=== PATIENT | female | born 1960 | race Caucasian/White ===

== ENCOUNTER 2020-01-25 18:40 | Emergency (ER) | payer BC, OTHER ==
[~2020-01-25] VITALS: Ht 157.5 cm; Wt 47.6 kg
[2020-01-25 18:50] VITALS: BP 165/99
[2020-01-25] MEDS ORDERED: DiphenhydrAMINE 50mg/ml Inj IVP ONE (19:00)
[2020-01-25 19:30] LABS: APPEARANCE,URINE CLEAR; BASOPHILS % (AUTO) 1.5 % (0.0-2.0); BILIRUBIN, URINE NEGATIVE (NEGATIVE); COLOR,URINE PALE YELLOW; EOSINOPHILS % (AUTO) 1.1 % (0.0-3.0); GLUCOSE, URINE (UA) NEGATIVE (NEGATIVE); HEMATOCRIT 40.4 % (37.0-47.0); HEMOGLOBIN 13.9 G/DL (12.0-16.0); KETONES,URINE NEGATIVE (NEGATIVE); LEUKOCYTE ESTERASE ,URINE 1+ (NEGATIVE); LYMPHOCYTES % (AUTO) 42.2 % (20.0-45.0); MEAN CORPUSCULAR VOLUME 93 FL (80-99); MONOCYTES % (AUTO) 8.9 % (1.0-10.0); NEUTROPHILS % (AUTO) 46.2 % (45.0-75.0); NITRITE,URINE NEGATIVE (NEGATIVE); PH,URINE 5 (4.5-8.0); PLATELET COUNT 286 K/UL (150-450); PROTEIN,URINE NEGATIVE (NEGATIVE); RED BLOOD COUNT 4.33 M/UL (4.20-5.40); RED CELL DISTRIBUTION WIDTH 12.6 % (11.6-14.8); UROBILINOGEN,URINE NORMAL MG/DL (0.0-1.0); WHITE BLOOD COUNT 5.9 K/UL (4.8-10.8)
[2020-01-25 19:37] LABS: ANION GAP 13 mmol/L (5-15); BLOOD UREA NITROGEN 19 mg/dL (7-18); CARBON DIOXIDE 24 MMOL/L (21-32); CHLORIDE 103 MMOL/L (98-107); CREATININE 0.9 MG/DL (0.55-1.30); POTASSIUM 3.8 MMOL/L (3.5-5.1); SODIUM 140 MMOL/L (136-145)
[2020-01-25 19:41] LABS: ALANINE AMINOTRANSFERASE 20 U/L (12-78); ALBUMIN 4.1 G/DL (3.4-5.0); ALBUMIN/GLOBULIN RATIO 1.1 (1.0-2.7); ALKALINE PHOSPHATASE 50 U/L (46-116); ASPARTATE AMINO TRANSFERASE 19 U/L (15-37); BILIRUBIN,TOTAL 0.7 MG/DL (0.2-1.0)
--- NOTE | 2020-01-25 19:57 | Emergency Room Report ---
History of Present Illness General Chief Complaint: Allergic Reaction Source: Patient Present Illness HPI 59-year-old female with history of severe food allergies here complaining of swelling in lips and tongue and tingling sensation inside her mouth after she had dinner about 30 minutes prior to arrival. Patient reports that she was eating the same meal that she usually cooks for herself as she has history of severe allergies. Patient reports that she used to carry an EpiPen with her in the past. Has not been seen by an mica parts sprayer in a few years. Patient appears to be very anxious. Reports that she also has a history of asthma and is well controlled. Patient does not want to have a chest x-ray at this time. Patient is able to speak in full sentences, swallows without any difficulty. No anaphylaxis noted. No obvious angioedema noted at this time however patient reports that right after eating food it was more swollen. Patient did take Claritin at home and reports that it helped with the swelling. Denies any headache, dizziness, chest pain, abdominal pain, nausea or vomiting. Reports that she has an appointment with her load manager tomorrow and will follow-up with an mica parts sprayer. Allergies: Coded Allergies: AZITHROMYCIN (Verified Allergy, Unknown, 01/25/20) COVID-19 Screening Contact w/high risk pt: No Recent Travel to affected area: No Experienced COVID-19 symptoms?: No COVID-19 Testing performed NURSE RESEARCH: No Patient History Past Medical History: see triage record Past Surgical History: none Pertinent Family History: none Now: No Immunizations: UTD Reviewed Nursing Documentation: PMH: Agreed; PSxH: Agreed Nursing Documentation-PMH Past Medical History: No Stated History Review of Systems All Other Systems: negative except mentioned in HPI Physical Exam Vital Signs Date Time Temp Pulse Resp B/P (MAP) Pulse Ox O2 Delivery O2 Flow Rate FiO2 01/25/20 18:44 98.1 71 18 165/99 (121) 95 Room Air Sp02 EP Interpretation: reviewed, normal General Appearance: no apparent distress, alert, GCS 15, non-toxic Head: normocephalic, atraumatic Eyes: bilateral eye normal inspection, bilateral eye PERRL ENT: hearing grossly normal, normal pharynx, no angioedema, normal voice, uvula midline Neck: full range of motion, supple/symm/no masses Respiratory: chest non-tender, lungs clear, normal breath sounds, speaking full sentences Cardiovascular #1: regular rate, rhythm, no edema, no JVD, no murmur Gastrointestinal: normal bowel sounds, non tender, soft, non-distended, no guarding, no rebound Rectal: deferred Genitourinary: no CVA tenderness Musculoskeletal: back normal Neurologic: alert, oriented Psychiatric: judgement/insight normal, memory normal, mood/affect normal, no suicidal/homicidal ideation, anxious Skin: other - Minimal swelling and redness noted perioral Lymphatic: no adenopathy Medical Decision Making PA Attestation All diagnoses and treatment plans were reviewed and discussed with my supervising physician Dr. Mckenzie Diagnostic Impression: Primary Impression: Angioedema Additional Impression: Allergic reaction ER Course 59-year-old female with history of severe food allergies here complaining of swelling in lips and tongue and tingling sensation inside her mouth after she had dinner about 30 minutes prior to arrival. Patient reports that she was eating the same meal that she usually cooks for herself as she has history of severe allergies. Patient reports that she used to carry an EpiPen with her in the past. Has not been seen by an mica parts sprayer in a few years. Patient appears to be very anxious. Reports that she also has a history of asthma and is well controlled. Patient does not want to have a chest x-ray at this time. Patient is able to speak in full sentences, swallows without any difficulty. No anaphylaxis noted. No obvious angioedema noted at this time however patient reports that right after eating food it was more swollen. Patient did take Claritin at home and reports that it helped with the swelling. Denies any headache, dizziness, chest pain, abdominal pain, nausea or vomiting. Reports that she has an appointment with her load manager tomorrow and will follow-up with an mica parts sprayer. Ddx considered but are not limited to : Anaphylaxis, angioedema, allergic reaction, Vital signs: are WNL, pt. is afebrile H&PE are most consistent with: Allergic reaction with minimal angioedema ORDERS: Benadryl, prednisone, EpiPen, CBC, CMP, UA ED INTERVENTIONS: Dexamethasone IV, Benadryl DISCHARGE: At this time pt. is stable for d/c to home. Will provide printed patient care instructions, and any necessary prescriptions. Care plan and follow up instructions have been discussed with the patient prior to discharge. Patient to follow primary doctor as well as an mica parts sprayer, take medication as directed, only use the EpiPen if anaphylaxis. If worsening symptoms return to the emergency room. Last Vital Signs Date Time Temp Pulse Resp B/P (MAP) Pulse Ox O2 Delivery O2 Flow Rate FiO2 01/25/20 18:50 98.1 71 18 165/99 95 Room Air Disposition: HOME, SELF-CARE Condition: Stable Scripts Epinephrine (Epipen 2-Dennis) 0.3 Mg/0.3 Ml Auto.injct 0.3 MG IM PRN, #2 EA Prov: Cathy Sarah 01/25/20 Diphenhydramine HCl (Benadryl) 25 Mg Capsule 25 MG PO BID, #20 CAP Prov: Cathy Sarah 01/25/20 Prednisone* (PREDNISONE*) 20 Mg Tablet 40 MG ORAL DAILY for 5 Days, #10 TAB Prov: Cathy Sarah 01/25/20 Patient Instructions: Allergies, Angioedema, [id number] Additional Instructions: Follow-up with primary doctor for allergy testing, take medication as directed, if anaphylaxis and difficulty breathing return to the emergency room. Increase oral hydration. Cathy Sarah Jan 25, 2020 19:57
[2020-01-25] MEDS ORDERED: PREDNISONE20 MG ORAL (19:59)
[2020-01-25] MEDS ORDERED: BENADRYL25 M3 PO (19:59)
[2020-01-25] MEDS ORDERED: EPIPEN 2-P0.3 MG/0.3 IM (19:59)
[2020-01-25 20:00] VITALS: BP 150/95
== END 2020-01-25 20:00 | disposition home or self-care (01) ==
LOC: EMR 19:57
DX: T78.3XXA Angioneurotic edema, initial encounter (principal); T78.1XXA Other adverse food reactions, not elsewhere classified, initial encounter; J45.909 Unspecified asthma, uncomplicated; X58.XXXA Exposure to other specified factors, initial encounter; Z88.1 Allergy status to other antibiotic agents
CPT/HCPCS: 36415; 80053; 80307; 81003; 85025; 96374; 96375; 99284; J1100; J1200